=== PATIENT | male | born 1955 | race Caucasian/White ===

== ENCOUNTER 2017-07-26 10:58 | Emergency (ER) | payer OTHER ==
[~2017-07-26] VITALS: Ht 182.9 cm; Wt 77.9 kg
[~2017-07-26 10:58] MED LIST: ALPR.5 PO; AMOCLA875 PO; CHLO25 PO; CYCL10 PO; ESOM20; FEXPSEER; HYDACE5; HYDACE5 PO; HYDR1TAB94 PO; HYOS.125; NAPR500 PO; Norco 5-325 Ta1 EACH PO; OXYACE5T PO; PANT40 PO; PROACE100 PO; SUCR1SU
[2017-07-26] MEDS ORDERED: CLON.1 PO (12:29)
[2017-07-26 12:38] LABS: BASOPHILS ABSOLUTE AUTO 0.04 K/mm3 (0.00-0.23); BASOPHILS PERCENT AUTO 0 % (0-2); EOSINOPHILS PERCENT AUTO 0 % (0-6); Hematocrit 39.4 % (37.0-53.0); IMMATURE GRAN ABSOLUTE AUTO 0.31 K/mm3 (0.00-0.10); IMMATURE GRAN PERCENT AUTO 2 % (0-1); LYMPHOCYTES ABSOLUTE AUTO 0.73 K/mm3 (0.84-5.20); LYMPHOCYTES PERCENT AUTO 4 % (21-46); MONOCYTES ABSOLUTE AUTO 2.13 K/mm3 (0.16-1.47); MONOCYTES PERCENT AUTO 10 % (4-13); Mean Corpuscular HGB 32.3 pg (26.0-34.0); Mean Corpuscular HGB Conc 35.5 g/dL (31.5-36.5); Mean Corpuscular Volume 91 fL (80-100); Mean Platelet Volume 8.8 fL (9.1-12.4); NEUTROPHILS ABSOLUTE AUTO 17.88 K/mm3 (1.96-9.15); NEUTROPHILS PERCENT AUTO 85 % (41-73); Platelet Count 476 K/mm3 (150-400); RDW Coefficient Variation 13.3 % (11.7-14.2); RDW Standard Deviation 45.1 fL (35.1-46.3); Red Blood Cell Count 4.33 M/mm3 (4.30-5.90); White Blood Cell Count 21.09 K/mm3 (4.00-11.30)
[2017-07-26 12:51] LABS: International Normalized Ratio 1.03; Prothrombin Time Results 10.7 Sec (9.7-11.5)
[2017-07-26 13:01] LABS: Alanine Aminotransfer (ALT/SGP 28 U/L (12-78); Albumin/Globulin Ratio 0.6 (0.8-1.8); Alk Phos 137 U/L (50-136); Anion Gap 12 mmol/L (6-16); Aspartate Aminotrans (AST/SGOT 36 U/L (12-37); Bilirubin, Total 0.8 mg/dL (0.1-1.0); Blood Urea Nitrogen 7 mg/dL (8-24); Bun/Creatinine Ratio 9.4 (12.0-20.0); CO2, Blood 21 mmol/L (21-32); Calcium, Blood 9.1 mg/dL (8.5-10.1); Chloride, Blood 92 mmol/L (98-108); Creatinine, Blood 0.75 mg/dL (0.60-1.20); Globulin, Blood 5.1 g/dL (2.2-4.0); Glomerular Filtration Rate >60 (60-); Glucose, Blood 136 mg/dL (70-99); Potassium, Blood 3.4 mmol/L (3.5-5.5); Sodium, Blood 125 mmol/L (136-145); Total Protein, Blood 8.1 g/dL (6.4-8.2)
== END 2017-07-26 18:20 | disposition short-term general hospital (02) ==
LOC: ER 10:58
PROVIDERS: Nurse Practitioner Family
DX: A41.9 Sepsis, unspecified organism (principal); R65.20 Severe sepsis without septic shock; G06.1 Intraspinal abscess and granuloma; F10.10 Alcohol abuse, uncomplicated; Z79.899 Other long term (current) drug therapy; Z87.11 Personal history of peptic ulcer disease
CPT/HCPCS: 36415; 71046; 72146; 72156; 80053; 83605; 85025; 85610; 85730; 87040; 87186; 93005; 93010; 96365; 96366; 96367; 96375; 96376; 99285; A9577; J0696; J2060; J3010; J3370

== ENCOUNTER 2017-08-04 00:42 | Day surgery (SDC) | payer OTHER ==
[~2017-08-04 00:42] MED LIST changes: +CLON.1 PO
[2017-08-04] MEDS ORDERED: ACET325 PO (11:50)
[2017-08-04] MEDS ORDERED: CALCA400CH PO (11:51)
[2017-08-04] MEDS ORDERED: BISA10S (11:51)
[2017-08-04] MEDS ORDERED: FOLI400 PO (11:52)
[2017-08-04] MEDS ORDERED: Rocephin 1g1 G/50 ML IV (11:52)
[2017-08-04] MEDS ORDERED: Hair, Skin & N1 EACH PO (11:53)
[2017-08-04] MEDS ORDERED: LISI5 PO (11:53)
== END 2017-08-04 11:56 | disposition home or self-care (01) ==
LOC: ATC 00:42
DX: G06.2 Extradural and subdural abscess, unspecified (principal)
CPT/HCPCS: 96374; J0696

== ENCOUNTER 2017-08-05 00:39 | Day surgery (SDC) | payer OTHER ==
[~2017-08-05 00:39] MED LIST changes: +ACET325 PO; +BISA10S; +CALCA400CH PO; +FOLI400 PO; +Hair, Skin & N1 EACH PO; +LISI5 PO; +Rocephin 1g1 G/50 ML IV
[2017-08-05 11:37] LABS: BASOPHILS ABSOLUTE AUTO 0.11 K/mm3 (0.00-0.23); BASOPHILS PERCENT AUTO 1 % (0-2); EOSINOPHILS ABSOLUTE AUTO 0.08 K/mm3 (0.00-0.68); EOSINOPHILS PERCENT AUTO 1 % (0-6); Hematocrit 33.8 % (37.0-53.0); Hemoglobin 11.6 g/dL (13.5-17.5); IMMATURE GRAN ABSOLUTE AUTO 0.27 K/mm3 (0.00-0.10); IMMATURE GRAN PERCENT AUTO 2 % (0-1); LYMPHOCYTES ABSOLUTE AUTO 2.15 K/mm3 (0.84-5.20); LYMPHOCYTES PERCENT AUTO 18 % (21-46); MONOCYTES ABSOLUTE AUTO 1.47 K/mm3 (0.16-1.47); MONOCYTES PERCENT AUTO 12 % (4-13); Mean Corpuscular HGB 32.8 pg (26.0-34.0); Mean Corpuscular HGB Conc 34.3 g/dL (31.5-36.5); Mean Platelet Volume 8.2 fL (9.1-12.4); NEUTROPHILS ABSOLUTE AUTO 7.76 K/mm3 (1.96-9.15); NEUTROPHILS PERCENT AUTO 66 % (41-73); RDW Coefficient Variation 13.4 % (11.7-14.2); RDW Standard Deviation 47.5 fL (35.1-46.3); Red Blood Cell Count 3.54 M/mm3 (4.30-5.90); White Blood Cell Count 11.84 K/mm3 (4.00-11.30)
[2017-08-05 11:43] LABS: Mean Corpuscular Volume 96 fL (80-100)
[2017-08-05 11:45] LABS: Platelet Count 1038 K/mm3 (150-400)
[2017-08-05 11:56] LABS: Alanine Aminotransfer (ALT/SGP 44 U/L (12-78); Albumin, Blood 3.2 g/dL (3.4-5.0); Albumin/Globulin Ratio 0.7 (0.8-1.8); Alk Phos 141 U/L (50-136); Anion Gap 10 mmol/L (6-16); Aspartate Aminotrans (AST/SGOT 37 U/L (12-37); Bilirubin, Total 0.4 mg/dL (0.1-1.0); Blood Urea Nitrogen 9 mg/dL (8-24); Bun/Creatinine Ratio 12.1 (12.0-20.0); CO2, Blood 22 mmol/L (21-32); Calcium, Blood 9.1 mg/dL (8.5-10.1); Chloride, Blood 95 mmol/L (98-108); Creatinine, Blood 0.74 mg/dL (0.60-1.20); Globulin, Blood 4.9 g/dL (2.2-4.0); Glomerular Filtration Rate >60 (60-); Glucose, Blood 116 mg/dL (70-99); Potassium, Blood 3.7 mmol/L (3.5-5.5); Sodium, Blood 127 mmol/L (136-145); Total Protein, Blood 8.1 g/dL (6.4-8.2)
== END 2017-08-05 11:15 | disposition home or self-care (01) ==
LOC: ATC 00:39
PROVIDERS: Internal Medicine
DX: G06.2 Extradural and subdural abscess, unspecified (principal); I10 Essential (primary) hypertension
CPT/HCPCS: 80053; 85025; 86140; 96374; J0696

== ENCOUNTER 2017-08-06 00:27 | Day surgery (SDC) | payer OTHER | END 2017-08-06 10:58 | disposition home or self-care (01) | LOC: ATC 00:27 | DX: G06.2 Extradural and subdural abscess, unspecified (principal); I10 Essential (primary) hypertension | CPT/HCPCS: 96374; J0696 ==

== ENCOUNTER 2017-08-07 02:14 | Day surgery (SDC) | payer OTHER | END 2017-08-07 11:10 | disposition home or self-care (01) | LOC: ATC 02:14 | DX: G06.2 Extradural and subdural abscess, unspecified (principal); I10 Essential (primary) hypertension; B96.89 Other specified bacterial agents as the cause of diseases classified elsewhere | CPT/HCPCS: 96374; J0696 ==

== ENCOUNTER 2017-08-10 00:13 | Day surgery (SDC) | payer OTHER | END 2017-08-10 10:43 | disposition home or self-care (01) | LOC: ATC 00:13 | DX: G06.2 Extradural and subdural abscess, unspecified (principal); I10 Essential (primary) hypertension | CPT/HCPCS: 96374; J0696 ==

== ENCOUNTER 2017-08-11 00:57 | Day surgery (SDC) | payer OTHER ==
[2017-08-12] MEDS ORDERED: Ceftriaxone2 G1 IV (11:06)
== END 2017-08-11 11:12 | disposition home or self-care (01) ==
LOC: ATC 00:57
DX: G06.2 Extradural and subdural abscess, unspecified (principal); I10 Essential (primary) hypertension
CPT/HCPCS: 96374; J0696

== ENCOUNTER 2017-08-12 00:06 | Day surgery (SDC) | payer OTHER ==
[2017-08-12] MEDS ORDERED: Ceftriaxone2 G1 IV (11:06)
[2017-08-12 11:41] LABS: BASOPHILS ABSOLUTE AUTO 0.08 K/mm3 (0.00-0.23); BASOPHILS PERCENT AUTO 1 % (0-2); EOSINOPHILS ABSOLUTE AUTO 0.06 K/mm3 (0.00-0.68); EOSINOPHILS PERCENT AUTO 1 % (0-6); Hematocrit 31.9 % (37.0-53.0); Hemoglobin 11.4 g/dL (13.5-17.5); IMMATURE GRAN ABSOLUTE AUTO 0.13 K/mm3 (0.00-0.10); IMMATURE GRAN PERCENT AUTO 2 % (0-1); LYMPHOCYTES ABSOLUTE AUTO 2.01 K/mm3 (0.84-5.20); LYMPHOCYTES PERCENT AUTO 25 % (21-46); MONOCYTES ABSOLUTE AUTO 1.14 K/mm3 (0.16-1.47); MONOCYTES PERCENT AUTO 14 % (4-13); Mean Corpuscular HGB 32.7 pg (26.0-34.0); Mean Corpuscular HGB Conc 35.7 g/dL (31.5-36.5); Mean Platelet Volume 8.2 fL (9.1-12.4); NEUTROPHILS ABSOLUTE AUTO 4.72 K/mm3 (1.96-9.15); NEUTROPHILS PERCENT AUTO 58 % (41-73); Platelet Count 737 K/mm3 (150-400); RDW Coefficient Variation 13.1 % (11.7-14.2); RDW Standard Deviation 43.9 fL (35.1-46.3); Red Blood Cell Count 3.49 M/mm3 (4.30-5.90); White Blood Cell Count 8.14 K/mm3 (4.00-11.30)
[2017-08-12 11:47] LABS: Mean Corpuscular Volume 91 fL (80-100)
[2017-08-12 12:00] LABS: Alanine Aminotransfer (ALT/SGP 27 U/L (12-78); Albumin, Blood 3.3 g/dL (3.4-5.0); Albumin/Globulin Ratio 0.8 (0.8-1.8); Alk Phos 91 U/L (50-136); Anion Gap 13 mmol/L (6-16); Aspartate Aminotrans (AST/SGOT 20 U/L (12-37); Bilirubin, Total 0.2 mg/dL (0.1-1.0); Blood Urea Nitrogen 3 mg/dL (8-24); Bun/Creatinine Ratio 5.2 (12.0-20.0); CO2, Blood 21 mmol/L (21-32); Calcium, Blood 8.7 mg/dL (8.5-10.1); Chloride, Blood 87 mmol/L (98-108); Creatinine, Blood 0.58 mg/dL (0.60-1.20); Glomerular Filtration Rate >60 (60-); Glucose, Blood 108 mg/dL (70-99); Potassium, Blood 3.9 mmol/L (3.5-5.5); Sodium, Blood 121 mmol/L (136-145); Total Protein, Blood 7.3 g/dL (6.4-8.2)
== END 2017-08-12 15:34 | disposition home or self-care (01) ==
LOC: ATC 00:06
PROVIDERS: Internal Medicine
DX: G06.2 Extradural and subdural abscess, unspecified (principal); F17.210 Nicotine dependence, cigarettes, uncomplicated; I10 Essential (primary) hypertension
CPT/HCPCS: 80053; 85025; 86140; 96365; J0696

== ENCOUNTER 2017-08-13 00:17 | Day surgery (SDC) | payer OTHER ==
[~2017-08-13 00:17] MED LIST changes: +Ceftriaxone2 G1 IV
== END 2017-08-13 15:39 | disposition home or self-care (01) ==
LOC: ATC 00:17
DX: G06.2 Extradural and subdural abscess, unspecified (principal)
CPT/HCPCS: 96374; J0696

== ENCOUNTER 2017-08-14 00:17 | Day surgery (SDC) | payer OTHER | END 2017-08-14 10:40 | disposition home or self-care (01) | LOC: ATC 00:17 | DX: G06.2 Extradural and subdural abscess, unspecified (principal) | CPT/HCPCS: 96374; J0696 ==

== ENCOUNTER 2017-08-17 00:49 | Day surgery (SDC) | payer OTHER | END 2017-08-17 10:39 | disposition home or self-care (01) | LOC: ATC 00:49 | DX: G06.2 Extradural and subdural abscess, unspecified (principal); F17.210 Nicotine dependence, cigarettes, uncomplicated; I10 Essential (primary) hypertension | CPT/HCPCS: 96374; J0696 ==

== ENCOUNTER 2017-08-19 00:39 | Day surgery (SDC) | payer OTHER | END 2017-08-19 10:57 | disposition home or self-care (01) | LOC: ATC 00:39 | DX: G06.2 Extradural and subdural abscess, unspecified (principal); F17.210 Nicotine dependence, cigarettes, uncomplicated | CPT/HCPCS: 96374; J0696 ==

== ENCOUNTER 2017-08-20 00:37 | Day surgery (SDC) | payer OTHER | END 2017-08-20 11:25 | disposition home or self-care (01) | LOC: ATC 00:37 | DX: G06.2 Extradural and subdural abscess, unspecified (principal); F17.210 Nicotine dependence, cigarettes, uncomplicated; I10 Essential (primary) hypertension | CPT/HCPCS: 96365; J0696 ==

== ENCOUNTER 2017-08-21 00:17 | Day surgery (SDC) | payer OTHER | END 2017-08-21 10:34 | disposition home or self-care (01) | LOC: ATC 00:17 | DX: G06.2 Extradural and subdural abscess, unspecified (principal); F17.210 Nicotine dependence, cigarettes, uncomplicated | CPT/HCPCS: 96374; J0696 ==

== ENCOUNTER 2017-08-22 00:31 | Day surgery (SDC) | payer OTHER | END 2017-08-22 10:51 | disposition home or self-care (01) | LOC: ATC 00:31 | DX: G06.2 Extradural and subdural abscess, unspecified (principal) | CPT/HCPCS: 96374; J0696 ==

== ENCOUNTER 2017-08-23 00:05 | Day surgery (SDC) | payer OTHER | END 2017-08-23 09:45 | disposition home or self-care (01) | LOC: ATC 00:05 | DX: G06.2 Extradural and subdural abscess, unspecified (principal); I10 Essential (primary) hypertension; F17.210 Nicotine dependence, cigarettes, uncomplicated | CPT/HCPCS: 96374; J0696 ==

== ENCOUNTER 2017-08-24 00:09 | Day surgery (SDC) | payer OTHER | END 2017-08-24 10:38 | disposition home or self-care (01) | LOC: ATC 00:09 | DX: G06.2 Extradural and subdural abscess, unspecified (principal); F17.210 Nicotine dependence, cigarettes, uncomplicated; I10 Essential (primary) hypertension | CPT/HCPCS: 96374; J0696 ==

== ENCOUNTER 2017-08-25 00:53 | Day surgery (SDC) | payer OTHER | END 2017-08-25 10:37 | disposition home or self-care (01) | LOC: ATC 00:53 | DX: I63.132 Cerebral infarction due to embolism of left carotid artery (principal); Z95.2 Presence of prosthetic heart valve | CPT/HCPCS: 96374; J0696 ==

== ENCOUNTER 2017-08-26 | Day surgery (SDC) | END 2017-08-26 10:52 | disposition home or self-care (01) ==

== ENCOUNTER 2017-08-28 00:14 | Day surgery (SDC) | payer OTHER | END 2017-08-28 10:13 | disposition home or self-care (01) | LOC: ATC 00:14 | DX: G06.2 Extradural and subdural abscess, unspecified (principal); F17.210 Nicotine dependence, cigarettes, uncomplicated; I10 Essential (primary) hypertension | CPT/HCPCS: 96374; J0696 ==

== ENCOUNTER 2017-08-29 00:09 | Day surgery (SDC) | payer OTHER | END 2017-08-29 11:14 | disposition home or self-care (01) | LOC: ATC 00:09 | DX: G06.2 Extradural and subdural abscess, unspecified (principal); F17.210 Nicotine dependence, cigarettes, uncomplicated; B96.89 Other specified bacterial agents as the cause of diseases classified elsewhere | CPT/HCPCS: 96374; J0696 ==

== ENCOUNTER 2017-08-31 00:16 | Day surgery (SDC) | payer OTHER | END 2017-08-31 10:25 | disposition home or self-care (01) | LOC: ATC 00:16 | DX: G06.2 Extradural and subdural abscess, unspecified (principal); B96.89 Other specified bacterial agents as the cause of diseases classified elsewhere; F17.210 Nicotine dependence, cigarettes, uncomplicated; I10 Essential (primary) hypertension | CPT/HCPCS: 96374; J0696 ==

== ENCOUNTER 2017-09-01 00:31 | Day surgery (SDC) | payer OTHER | END 2017-09-01 10:08 | disposition home or self-care (01) | LOC: ATC 00:31 | DX: G06.2 Extradural and subdural abscess, unspecified (principal); F17.210 Nicotine dependence, cigarettes, uncomplicated; I10 Essential (primary) hypertension | CPT/HCPCS: 96374; J0696 ==

== ENCOUNTER 2017-09-02 00:24 | Day surgery (SDC) | payer OTHER ==
[2017-09-02 11:14] LABS: BASOPHILS ABSOLUTE AUTO 0.06 K/mm3 (0.00-0.23); BASOPHILS PERCENT AUTO 1 % (0-2); EOSINOPHILS ABSOLUTE AUTO 0.14 K/mm3 (0.00-0.68); EOSINOPHILS PERCENT AUTO 2 % (0-6); Hematocrit 40.3 % (37.0-53.0); Hemoglobin 13.6 g/dL (13.5-17.5); IMMATURE GRAN ABSOLUTE AUTO 0.02 K/mm3 (0.00-0.10); IMMATURE GRAN PERCENT AUTO 0 % (0-1); LYMPHOCYTES ABSOLUTE AUTO 2.43 K/mm3 (0.84-5.20); LYMPHOCYTES PERCENT AUTO 32 % (21-46); MONOCYTES ABSOLUTE AUTO 0.84 K/mm3 (0.16-1.47); MONOCYTES PERCENT AUTO 11 % (4-13); Mean Corpuscular HGB 32.5 pg (26.0-34.0); Mean Corpuscular HGB Conc 33.7 g/dL (31.5-36.5); Mean Corpuscular Volume 96 fL (80-100); Mean Platelet Volume 8.6 fL (9.1-12.4); NEUTROPHILS ABSOLUTE AUTO 4.18 K/mm3 (1.96-9.15); NEUTROPHILS PERCENT AUTO 54 % (41-73); Platelet Count 353 K/mm3 (150-400); RDW Coefficient Variation 14.2 % (11.7-14.2); Red Blood Cell Count 4.19 M/mm3 (4.30-5.90); White Blood Cell Count 7.67 K/mm3 (4.00-11.30)
[2017-09-02 11:42] LABS: Alanine Aminotransfer (ALT/SGP 18 U/L (12-78); Albumin, Blood 3.9 g/dL (3.4-5.0); Albumin/Globulin Ratio 1.1 (0.8-1.8); Alk Phos 90 U/L (50-136); Anion Gap 9 mmol/L (6-16); Aspartate Aminotrans (AST/SGOT 17 U/L (12-37); Bilirubin, Total 0.5 mg/dL (0.1-1.0); Blood Urea Nitrogen 7 mg/dL (8-24); Bun/Creatinine Ratio 9.5 (12.0-20.0); CO2, Blood 22 mmol/L (21-32); Calcium, Blood 8.9 mg/dL (8.5-10.1); Chloride, Blood 104 mmol/L (98-108); Creatinine, Blood 0.73 mg/dL (0.60-1.20); Globulin, Blood 3.5 g/dL (2.2-4.0); Glomerular Filtration Rate >60 (60-); Glucose, Blood 135 mg/dL (70-99); Potassium, Blood 3.7 mmol/L (3.5-5.5); Sodium, Blood 135 mmol/L (136-145); Total Protein, Blood 7.4 g/dL (6.4-8.2)
[2017-09-02 11:43] LABS: C-REACTIVE PROTEIN, EXT RANGE 0.442 mg/dL (0.000-0.300)
[2017-09-03] MEDS ORDERED: LISI20 PO (10:38)
== END 2017-09-02 10:50 | disposition home or self-care (01) ==
LOC: ATC 00:24
PROVIDERS: Nurse Practitioner Family
DX: G06.2 Extradural and subdural abscess, unspecified (principal); F17.210 Nicotine dependence, cigarettes, uncomplicated; I10 Essential (primary) hypertension
CPT/HCPCS: 36415; 80053; 84153; 85025; 86140; 96374; J0696

== ENCOUNTER 2017-09-03 00:18 | Day surgery (SDC) | payer OTHER ==
[2017-09-03] MEDS ORDERED: LISI20 PO (10:38)
== END 2017-09-03 10:35 | disposition home or self-care (01) ==
LOC: ATC 00:18
DX: G06.2 Extradural and subdural abscess, unspecified (principal); F17.210 Nicotine dependence, cigarettes, uncomplicated; I10 Essential (primary) hypertension
CPT/HCPCS: 96374; J0696

== ENCOUNTER 2017-09-04 00:17 | Day surgery (SDC) | payer OTHER ==
[~2017-09-04 00:17] MED LIST changes: +LISI20 PO
== END 2017-09-04 10:33 | disposition home or self-care (01) ==
LOC: ATC 00:17
DX: G06.2 Extradural and subdural abscess, unspecified (principal); F17.210 Nicotine dependence, cigarettes, uncomplicated; I10 Essential (primary) hypertension
CPT/HCPCS: 96374; J0696

== ENCOUNTER 2017-09-05 00:03 | Day surgery (SDC) | payer OTHER | END 2017-09-05 10:32 | disposition home or self-care (01) | LOC: ATC 00:03 | DX: G06.2 Extradural and subdural abscess, unspecified (principal) | CPT/HCPCS: 96374; J0696 ==

== ENCOUNTER 2017-09-06 10:21 | Day surgery (SDC) | payer OTHER | END 2017-09-06 10:46 | disposition home or self-care (01) | LOC: ATC 10:21 | DX: G06.2 Extradural and subdural abscess, unspecified (principal); I10 Essential (primary) hypertension; F17.210 Nicotine dependence, cigarettes, uncomplicated | CPT/HCPCS: 96374; J0696 ==

== ENCOUNTER 2018-01-01 12:12 | Emergency (ER) | payer OTHER ==
[~2018-01-01] VITALS: Ht 182.9 cm; Wt 76.2 kg
[2018-01-01 13:38] LABS: BASOPHILS ABSOLUTE AUTO 0.07 K/mm3 (0.00-0.23); BASOPHILS PERCENT AUTO 1 % (0-2); EOSINOPHILS ABSOLUTE AUTO 0.05 K/mm3 (0.00-0.68); EOSINOPHILS PERCENT AUTO 1 % (0-6); Hematocrit 39.7 % (37.0-53.0); Hemoglobin 13.4 g/dL (13.5-17.5); IMMATURE GRAN ABSOLUTE AUTO 0.09 K/mm3 (0.00-0.10); IMMATURE GRAN PERCENT AUTO 1 % (0-1); LYMPHOCYTES ABSOLUTE AUTO 2.14 K/mm3 (0.84-5.20); LYMPHOCYTES PERCENT AUTO 21 % (21-46); MONOCYTES PERCENT AUTO 12 % (4-13); Mean Corpuscular HGB 33.6 pg (26.0-34.0); Mean Corpuscular HGB Conc 33.8 g/dL (31.5-36.5); Mean Corpuscular Volume 100 fL (80-100); Mean Platelet Volume 8.7 fL (9.1-12.4); NEUTROPHILS PERCENT AUTO 65 % (41-73); Platelet Count 363 K/mm3 (150-400); RDW Coefficient Variation 14.3 % (11.7-14.2); RDW Standard Deviation 52.8 fL (35.1-46.3); Red Blood Cell Count 3.99 M/mm3 (4.30-5.90); White Blood Cell Count 10.15 K/mm3 (4.00-11.30)
[2018-01-01 14:04] LABS: Alanine Aminotransfer (ALT/SGP 22 U/L (12-78); Albumin, Blood 3.8 g/dL (3.4-5.0); Albumin/Globulin Ratio 1.3 (0.8-1.8); Alk Phos 78 U/L (50-136); Anion Gap 10 mmol/L (6-16); Aspartate Aminotrans (AST/SGOT 28 U/L (12-37); Bilirubin, Total 0.6 mg/dL (0.1-1.0); Blood Urea Nitrogen 8 mg/dL (8-24); Bun/Creatinine Ratio 8.9 (12.0-20.0); CO2, Blood 22 mmol/L (21-32); Calcium, Blood 8.4 mg/dL (8.5-10.1); Chloride, Blood 102 mmol/L (98-108); Glomerular Filtration Rate >60 (60-); Glucose, Blood 97 mg/dL (70-99); Potassium, Blood 3.8 mmol/L (3.5-5.5); Sodium, Blood 134 mmol/L (136-145); Total Protein, Blood 6.8 g/dL (6.4-8.2)
[2018-01-01] MEDS ORDERED: Cyclobenzaprine5 MG PO (16:38)
[2018-01-01] MEDS ORDERED: KETO10 PO (16:38)
== END 2018-01-01 17:25 | disposition home or self-care (01) ==
LOC: MRI 12:12 → ER 12:12
PROVIDERS: Emergency Medicine
DX: M54.2 Cervicalgia (principal); G89.29 Other chronic pain; G44.209 Tension-type headache, unspecified, not intractable; Z79.899 Other long term (current) drug therapy
CPT/HCPCS: 36415; 70553; 72156; 80053; 85025; 99284-25; A9577

== ENCOUNTER 2019-02-23 12:39 | Emergency (ER) | payer OTHER ==
[~2019-02-23] VITALS: Ht 182.9 cm; Wt 72.6 kg
[~2019-02-23 12:39] MED LIST changes: +CRUTCH2 XX; +Cyclobenzaprine5 MG PO; +IBUP800 PO; +KETO10 PO
[2019-02-23] MEDS ORDERED: HYDR10 PO (13:41)
[2019-02-23] MEDS ORDERED: METOPROLOL SUCC25 MG PO (13:41)
[2019-02-23] MEDS ORDERED: ATORVASTATIN CA20 MG PO (13:41)
[2019-02-23] MEDS ORDERED: TRAZ50 (13:41)
[2019-02-23] MEDS ORDERED: Heartburn Relie20 MG (13:41)
[2019-02-23] MEDS ORDERED: Zantac150 MG (13:41)
[2019-02-23] MEDS ORDERED: Clonidine HCl0.3 MG PO (13:41)
[2019-02-23 13:44] LABS: BASOPHILS ABSOLUTE AUTO 0.07 K/mm3 (0.00-0.23); BASOPHILS PERCENT AUTO 1 % (0-2); EOSINOPHILS ABSOLUTE AUTO 0.02 K/mm3 (0.00-0.68); EOSINOPHILS PERCENT AUTO 0 % (0-6); Hematocrit 43.3 % (37.0-53.0); Hemoglobin 15.3 g/dL (13.5-17.5); IMMATURE GRAN ABSOLUTE AUTO 0.05 K/mm3 (0.00-0.10); IMMATURE GRAN PERCENT AUTO 0 % (0-1); LYMPHOCYTES ABSOLUTE AUTO 4.96 K/mm3 (0.84-5.20); LYMPHOCYTES PERCENT AUTO 36 % (21-46); MONOCYTES ABSOLUTE AUTO 2.07 K/mm3 (0.16-1.47); MONOCYTES PERCENT AUTO 15 % (4-13); Mean Corpuscular HGB 34.5 pg (26.0-34.0); Mean Corpuscular HGB Conc 35.3 g/dL (31.5-36.5); Mean Corpuscular Volume 98 fL (80-100); Mean Platelet Volume 9.2 fL (9.1-12.4); NEUTROPHILS ABSOLUTE AUTO 6.52 K/mm3 (1.96-9.15); NEUTROPHILS PERCENT AUTO 48 % (41-73); Platelet Count 333 K/mm3 (150-400); RDW Coefficient Variation 12.5 % (11.7-14.2); RDW Standard Deviation 45.1 fL (35.1-46.3); Red Blood Cell Count 4.44 M/mm3 (4.30-5.90); White Blood Cell Count 13.69 K/mm3 (4.00-11.30)
[2019-02-23 14:02] LABS: Alanine Aminotransfer (ALT/SGP 37 U/L (12-78); Albumin/Globulin Ratio 1.1 (0.8-1.8); Alk Phos 104 U/L (50-136); Anion Gap 17 mmol/L (6-16); Aspartate Aminotrans (AST/SGOT 49 U/L (12-37); Bilirubin, Total 1.1 mg/dL (0.1-1.0); Blood Urea Nitrogen 3 mg/dL (8-24); Bun/Creatinine Ratio 3.5 (12.0-20.0); CO2, Blood 16 mmol/L (21-32); Calcium, Blood 9.4 mg/dL (8.5-10.1); Chloride, Blood 97 mmol/L (98-108); Creatinine, Blood 0.86 mg/dL (0.60-1.20); Globulin, Blood 3.6 g/dL (2.2-4.0); Glomerular Filtration Rate >60 (60-); Glucose, Blood 109 mg/dL (70-99); Potassium, Blood 3.6 mmol/L (3.5-5.5); Sodium, Blood 130 mmol/L (136-145); Total Protein, Blood 7.6 g/dL (6.4-8.2)
[2019-02-23] MEDS ORDERED: Protonix40 MG PO (15:57)
[2019-02-23] MEDS ORDERED: CHLO25 PO (15:57)
== END 2019-02-23 16:10 | disposition home or self-care (01) ==
LOC: ER 12:39
PROVIDERS: Physician Assistant
DX: K29.70 Gastritis, unspecified, without bleeding (principal); F10.239 Alcohol dependence with withdrawal, unspecified; Z79.899 Other long term (current) drug therapy
CPT/HCPCS: 36415; 80053; 83690; 85025; 96361; 96374; 96375; 99284-25; C9113; J1170; J2060; J2405; J7030

== ENCOUNTER → 2020-12-06 | Outpatient (CLI) | payer OTHER ==
[~2020-12-06] MED LIST changes: +ATORVASTATIN CA20 MG PO; +Clonidine HCl0.3 MG PO; +HYDR10 PO; +Heartburn Relie20 MG; +METOPROLOL SUCC25 MG PO; +Protonix40 MG PO; +TRAZ50; +Zantac150 MG
[2020-12-06 15:08] LABS: BASOPHILS ABSOLUTE AUTO 0.05 K/mm3 (0.00-0.23); BASOPHILS PERCENT AUTO 1 % (0-2); EOSINOPHILS ABSOLUTE AUTO 0.07 K/mm3 (0.00-0.68); EOSINOPHILS PERCENT AUTO 1 % (0-6); Hematocrit 41.4 % (37.0-53.0); Hemoglobin 14.1 g/dL (13.5-17.5); IMMATURE GRAN ABSOLUTE AUTO 0.01 K/mm3 (0.00-0.10); IMMATURE GRAN PERCENT AUTO 0 % (0-1); LYMPHOCYTES PERCENT AUTO 44 % (21-46); MONOCYTES ABSOLUTE AUTO 0.92 K/mm3 (0.16-1.47); MONOCYTES PERCENT AUTO 14 % (4-13); Mean Corpuscular HGB 34.1 pg (26.0-34.0); Mean Corpuscular HGB Conc 34.1 g/dL (31.5-36.5); Mean Corpuscular Volume 100 fL (80-100); Mean Platelet Volume 9.9 fL (9.1-12.4); NEUTROPHILS PERCENT AUTO 40 % (41-73); Platelet Count 294 K/mm3 (150-400); RDW Coefficient Variation 13.1 % (11.7-14.2); RDW Standard Deviation 48.8 fL (35.1-46.3); Red Blood Cell Count 4.13 M/mm3 (4.30-5.90); White Blood Cell Count 6.55 K/mm3 (4.00-11.30)
[2020-12-06 16:05] LABS: Alanine Aminotransfer (ALT/SGP 124 U/L (12-78); Albumin, Blood 3.5 g/dL (3.4-5.0); Albumin/Globulin Ratio 1.2 (0.8-1.8); Alk Phos 108 U/L (50-136); Anion Gap 8 mmol/L (6-16); Aspartate Aminotrans (AST/SGOT 246 U/L (12-37); Bilirubin, Total 0.9 mg/dL (0.1-1.0); Blood Urea Nitrogen 6 mg/dL (8-24); Bun/Creatinine Ratio 7.3 (12.0-20.0); CHOL/HDL RATIO 2.6; CO2, Blood 23 mmol/L (21-32); Chloride, Blood 103 mmol/L (98-108); Cholesterol 119 mg/dL (50-200); Creatinine, Blood 0.82 mg/dL (0.60-1.20); Globulin, Blood 2.9 g/dL (2.2-4.0); Glomerular Filtration Rate >60 (60-); Glucose, Blood 114 mg/dL (70-99); HDL Cholesterol 45 mg/dL (>39); LDL/HDL RATIO Unable to Calculate; Low Density Lipoprotein Chol Unable to Calculate mg/dL (0-110); Potassium, Blood 4.2 mmol/L (3.5-5.5); Sodium, Blood 134 mmol/L (136-145); Total Protein, Blood 6.4 g/dL (6.4-8.2); Triglycerides 383 mg/dL (30-160); Very Low Density Lipoprot Chol 76 mg/dL (6-32)
[2020-12-06 16:18] LABS: LDL Direct Measurement 27 mg/dL (0-130)
== END | disposition home or self-care (01) ==
LOC: LAB SHORT 13:33 → LAB 13:33
PROVIDERS: Nurse Practitioner Family
DX: I10 Essential (primary) hypertension (principal)
CPT/HCPCS: 80053; 80061; 83721; 84443; 85025